=== PATIENT | female | born 1985 | race Caucasian/White ===

== ENCOUNTER → 2021-04-11 | Outpatient (CLI) | payer MEDICAID ==
[~2021-04-11] MED LIST: AUGMENTIN 500-1 EACH PO; NORCO 325 MG-51 TA1 PO; VIBRAMYCIN HYC100 MG PO; ZOFRAN ODT4 MG PO
== END ==
LOC: LAB 17:31
DX: Z20.822 Contact with and (suspected) exposure to COVID-19 (principal)